=== PATIENT | female | born 1975 | race Caucasian/White ===

== ENCOUNTER 2016-12-23 15:22 | Emergency (ER) | payer MEDICAID ==
[~2016-12-23] VITALS: Ht 157.5 cm; Wt 80.3 kg
[2016-12-23 18:35] VITALS: BP 202/114
--- NOTE | 2016-12-23 19:30 | NUR ---
PT TAKEN TO BED 3
--- NOTE | 2016-12-23 19:32 | NUR ---
Dr. Middleton evaluating patient at bedside.
--- NOTE | 2016-12-23 19:35 | NUR ---
41 Y/O HERE C/O ABCESS AND PAIN TO L UPPER TOOTH X 2 DAYS. DENIES ANY FEVER. ER CONT EVALUATING PT.
[2016-12-23] MEDS ORDERED: IBUPROFEN 600 MG TAB PO ONE (19:45)
[2016-12-23] MEDS ORDERED: ACETAMINOPHEN/CODEINE 300/30MG 1 TAB PO ONE (19:45)
[2016-12-23] MEDS ORDERED: PENICILLIN V POTASSIUM 250 MG TAB PO ONE (19:45)
[2016-12-23 20:20] VITALS: BP 142/86
--- NOTE | 2016-12-23 20:20 | NUR ---
Patient discharged with v/s stable. Written and verbal after care instructions given and explained. Patient alert, oriented and verbalized understanding of instructions. Ambulatory with steady gait. All questions addressed prior to discharge. ID band removed. Patient advised to follow up with PMD. Rx of IBUPROFEN, ACETAMINOPHEN, AND PENICILLIN given. Patient educated on indication of medication including possible reaction and side effects. Opportunity to ask questions provided and answered.
--- NOTE | 2016-12-23 20:20 | NUR ---
Charo milligan in [place] - 12/23/16 at 2047 by MATT D
== END 2016-12-23 20:20 | disposition home or self-care (01) ==
LOC: MED 15:22
DX: K04.7 Periapical abscess without sinus (principal); K02.9 Dental caries, unspecified